=== PATIENT | female | born 1935 | race Caucasian/White ===

== ENCOUNTER → 2023-06-03 14:31 | Outpatient (CLI) | payer MEDICARE, SELFPAY ==
--- NOTE | ~2023-06-03 | XR_ITS ---
[id number] DATE: 06/03/2023 15:10 INDICATION: Neck pain TECHNIQUE: AP, open-mouth, odontoid, lateral views COMPARISON: None FINDINGS: Moderate degenerative disc disease at C3-4 and moderately severe degenerative disease at C4 -5 and C5-C6, severe degenerative disc disease at C6-7. There is uncovertebral joint spurring and degenerative change at the apophyseal joints throughout the cervical spine. C1 and C2 are normally aligned and the odontoid process appears intact. No fracture or dislocation or locked facet or prevertebral soft tissue swelling. IMPRESSION: Multilevel moderate to severe degenerative disc disease Reviewed, dictated and finalized at [facility]. Reviewed, dictated and finalized at [facility]. [employer]ULT[employer] RESEARCH DIRECTOR
== END ==
PROVIDERS: PCP Internal Medicine; Visit Provider Nurse Practitioner Family
DX: M50.30 Other cervical disc degeneration, unspecified cervical region (principal)
CPT/HCPCS: 72040